=== PATIENT | male | born 1980 | race Caucasian/White ===

== ENCOUNTER 2017-07-11 20:48 | Observation (INO) ==
[2017-07-11] MEDS ORDERED: Ondansetron ODT 4 MG TAB.RAPDIS SL ONE (22:25)
--- NOTE | 2017-07-11 22:27 | Emergency Department Note ---
Disposition Clinical Impression: Abdominal pain Qualifiers: Abdominal location: left lower quadrant Qualified Code(s): R10.32 - Left lower quadrant pain Acute appendicitis Qualifiers: Acute appendicitis type: unspecified acute appendicitis type Qualified Code(s) : K35.80 - Unspecified acute appendicitis Disposition: Admitted As Inpatient Condition: Fair Instructions: Abdominal Pain (ED) Referrals: Riley Womack MD [Primary Care Provider] - Forms: ED Satisfaction Letter, Work/School Release Time of Disposition: 00:18 General Adult HPI - General Chief complaint: ED Abdominal Pain Stated complaint: abd pain Time Seen by Provider: 07/11/17 21:42 Source: patient Mode of arrival: ambulatory Limitations: no limitations Nursing Notes Reviewed: Yes Vital Signs Reviewed: Yes - History of Present Illness HPI Narrative: 37M evaluated yesterday in the ED for abdominal pain presenting less than 24 hours after discharge for same symptoms of nausea/vomitting, abodominal pain. CT yesterday was reviewed to be at the time non-surgical but prophylactic antibiotics were given in the setting of appendiceal dilatation with fecolith. Of note, he has been unable to keep fluids and prescribed meds down (was given Rx for antiemetics that he tried to take but was unsuccessful due to continued vomit). Pain Scale: 10 - Related Data Home Medications Medication Instructions Recorded Confirmed Budesonide/Formoterol 80/4.5 2 gm IH BIDR 08/31/16 08/31/16 [Symbicort 80/4.5] Escitalopram [Lexapro] 20 mg PO DAILY 08/31/16 03/08/17 Albuterol Sulfate [Ventolin Hfa] 18 gm IH Q4HR PRN 03/08/17 03/08/17 Aspirin 81 mg PO DAILY 03/08/17 03/08/17 Budesonide/Formoterol 80/4.5 2 puff IH BID 03/08/17 03/08/17 [Symbicort 80/4.5] Doxepin HCl 10 mg PO HS 03/08/17 03/08/17 Metoprolol [Lopressor] 25 mg PO BID 03/08/17 03/08/17 Previous Rx's Medication Instructions Recorded predniSONE [PredniSONE] 60 mg PO DAILY #15 tablet 03/24/17 Ciprofloxacin [Cipro] 500 mg PO BID #10 tablet 07/11/17 Ondansetron ODT [Zofran ODT] 4 mg SL Q6HR PRN #14 tab.rapdis 07/11/17 OxyCODONE/APAP 5/325 [Percocet 1 each PO Q6HR PRN 3 Days #10 07/11/17 5/325 MG] tablet metroNIDAZOLE [Flagyl] 500 mg PO BID #10 tablet 07/11/17 Allergies Allergy/AdvReac Type Severity Reaction Status Date / Time Amoxicillin Allergy Hives Verified 08/31/16 14:22 Penicillins Allergy Hives Verified 08/31/16 14:22 Constitutional: Denies: fever Cardiovascular: Denies: chest pain Respiratory: Denies: cough, dyspnea Gastrointestinal: Reports: abdominal pain, nausea, vomiting. Denies: diarrhea Genitourinary: Denies: dysuria Past Medical History - Past Medical History Medical history: Reports: asthma Surgical history: Reports: other Psychiatric history: Reports: anxiety, depression - Social History Smoking Status: Current every day smoker Smokeless Tobacco Status: No Alcohol use: Reports: none Drug use: Reports: none Physical Exam - General Limitations: no limitations General appearance: alert, in no apparent distress - Head Head exam: atraumatic, normocephalic - Eye Eye exam: Present: EOMI - Cardiovascular Cardiovascular exam: Present: regular rate, normal rhythm. Absent: systolic murmur, diastolic murmur, JVD - Abdominal Exam Abdominal exam: Present: soft, tenderness. Absent: guarding, rebound, rigidity , Lora's sign, Rovsing's sign - Neurological Exam Neurological exam: Present: alert, oriented X3 - Skin Skin exam: Present: warm. Absent: cyanosis, diaphoresis Course Course Narrative: On exam patient is tender at McBurney's point, no rebound, he has elevated an white count of 16k, afebrile. We are ordering a CT abd/pelvis with contrast along with basic labs. Past creatinine is WNL. CT was read as acute appendicitis, we are starting him on Levaquin/Flagyl, patient discussed with surgeon on-call who agrees to evaluate patient for surgery. He has no comorbidities or bleeding disorder. VSS stable 0017. Vital Signs Temperature 98.4 F 07/11/17 20:52 Pulse Rate 84 07/11/17 20:52 Respiratory Rate 16 07/11/17 20:52 Blood Pressure 142/76 07/11/17 20:52 O2 Sat by Pulse Oximetry 96 07/11/17 20:52 Temperature 98.4 F 07/11/17 20:52 Pulse Rate 84 07/11/17 20:52 Respiratory Rate 16 07/11/17 20:52 Blood Pressure 142/76 07/11/17 20:52 O2 Sat by Pulse Oximetry 96 07/11/17 20:52 Oxygen Delivery Oxygen Delivery Room Air Medical Decision Making - Medical Records Medical records reviewed: Yes I reviewed the patient's medical records. - Lab Data Lab results reviewed: Yes I reviewed the patient's lab results. Result diagrams: 07/11/17 23:00 07/11/17 23:00 Lab Results 07/11/17 07/11/17 07/11/17 Range/Units 22:58 23:00 23:00 WBC 16.1 H (4.3-11.1) K/mcL RBC 4.85 (4.19-5.50) M/mcL Hgb 15.4 D (12.9-16.9) g/dL Hct 43.8 (37.5-50.1) % MCV 90.3 (83.0-100.0) fL MCH 31.8 (28.0-33.3) pg MCHC 35.2 (31.6-35.5) g/dL RDW 13.2 (11.5-14.5) % Plt Count 317 (140-400) K/mcL MPV 8.7 L (9.4-12.4) fL Immature Gran % 0.4 (0-4) % Seg Neutrophils % 82.0 % Lymphocytes % 10.4 % Monocytes % 7.0 % Eosinophils % 0.1 % Basophils % 0.1 % Neutrophils # 13.2 H (1.6-8.9) K/mcL Lymphocytes # 1.7 (0.6-4.6) K/mcL Monocytes # 1.1 (0.0-1.3) K/mcL Eosinophils # 0.0 (0.0-0.6) K/mcL Basophils # 0.0 (0.0-0.2) K/mcL Sodium 139 (136-145) mEq/L Potassium 3.3 L (3.5-5.1) mEq/L Chloride 104 (98-107) mEq/L Carbon Dioxide 26 (23-29) mEq/L BUN 13 (6-20) mg/dL Creatinine 0.78 (0.70-1.30) mg/dL Est GFR ( Amer) > 60 (> 60) Est GFR (Non-Af Amer) > 60 (> 60) BUN/Creatinine Ratio 17 (6-26) Glucose 113 H (70-105) mg/dL Calculated Osmolality 289 (280-300) Calcium 9.9 (8.6-10.3) mg/dL Total Bilirubin 0.6 (0.3-1.0) mg/dL Direct Bilirubin 0.2 (0.0-0.2) mg/dL Indirect Bilirubin 0.4 (0.0-1.2) mg/dL AST 15 (13-39) Units/L ALT 27 (7-52) Units/L Alkaline Phosphatase 100 (34-104) Units/L Serum Total Protein 7.4 (6.4-8.9) g/dL Albumin 4.9 (3.5-5.7) g/dL Globulin 2.5 (2.4-3.5) g/dL Albumin/Globulin Ratio 2.0 (1.1-2.2) Lipase 31 (11-82) Units/L Urine Color Dark Yellow (Yellow) Urine Clarity Clear (Clear) Urine pH 7.5 (5.0-8.0) pH Units Ur Specific [place] > 1.030 H (1.010-1.025) Urine Protein 100 H (Neg-Trace) mg/dL Urine Glucose (UA) Normal (Normal) mg/dL Urine Ketones Trace H (Negative) mg/dL Urine Blood Negative (Negative) Urine Nitrite Negative (Negative) Urine Bilirubin Negative (Negative) Urine Urobilinogen Normal (Normal) mg/dL Ur Leukocyte Esterase Trace H (Negative) Urine Microscopic RBC 15-30 H (0-3) per hpf Urine Microscopic WBC 3-5 H (0-3) per hpf Ur Squamous Epith Cells Many H (None-Few) per lpf Urine Bacteria None Seen (None-Few) per hpf Hyaline Casts None Seen (None-Few) per lpf Ur Culture Indicated? NO. (NO) Attestation Statement - Attestation Attestation: I examined this patient and my medical decision-making was reviewed with the Resident Physician. I agree with the documented findings, disposition and treatment plan as described except to the extent set forth below. Findings consistent with acute appendicitis. Start Levaquin and Flagyl at surgical services request. Patient will be admitted for appendectomy.
[2017-07-11] MEDS ORDERED: *HR* HYDROcodone/Acet 5/325 mg TABLET PO ONE (22:29)
[2017-07-11 23:03] LABS: Bilirubin,Urine Negative (Negative); Blood,Urine Negative (Negative); Clarity,Urine Clear (Clear); Color,Urine Dark Yellow (Yellow); Glucose,Urine (UA) Normal (Normal); Ketones,Urine Trace mg/dL (Negative); Leukocyte Esterase,Urine Trace (Negative); Nitrite,Urine Negative (Negative); PH,Urine 7.5 pH Units (5.0-8.0); Protein,Urine 100 mg/dL (Neg-Trace); Specific Gravity,Urine > 1.030 (1.010-1.025); Urobilinogen,Urine Normal (Normal)
[2017-07-11 23:06] LABS: Bacteria,Urine None Seen per hpf (None-Few); Hyaline Casts,Urine None Seen per lpf (None-Few); RBC,Urine 15-30 per hpf (0-3); Squamous Epithelial Cell,Urine Many per lpf (None-Few)
[2017-07-11 23:17] LABS: Basophils % 0.1 %; Eosinophils % 0.1 %; Hematocrit 43.8 % (37.5-50.1); Immature Granulocytes % 0.4 % (0-4); Lymphocytes # 1.7 K/mcL (0.6-4.6); Lymphocytes % 10.4 %; Mean Corpuscular HGB Conc 35.2 g/dL (31.6-35.5); Mean Corpuscular Hemoglobin 31.8 pg (28.0-33.3); Mean Corpuscular Volume 90.3 fL (83.0-100.0); Mean Platelet Volume 8.7 fL (9.4-12.4); Monocytes # 1.1 K/mcL (0.0-1.3); Neutrophils # 13.2 K/mcL (1.6-8.9); Platelet Count 317 K/mcL (140-400); Red Blood Count 4.85 M/mcL (4.19-5.50); Red Cell Distribution Width 13.2 % (11.5-14.5)
[2017-07-11 23:18] LABS: Hemoglobin 15.4 g/dL (12.9-16.9)
[2017-07-11 23:37] LABS: Alanine Aminotransferase 27 Units/L (7-52); Albumin 4.9 g/dL (3.5-5.7); Alkaline Phosphatase 100 Units/L (34-104); Aspartate Amino Transferase 15 Units/L (13-39); BUN/Creatinine Ratio 17 (6-26); Bilirubin,Direct 0.2 mg/dL (0.0-0.2); Bilirubin,Indirect 0.4 mg/dL (0.0-1.2); Bilirubin,Total 0.6 mg/dL (0.3-1.0); Blood Urea Nitrogen 13 mg/dL (6-20); Calcium 9.9 mg/dL (8.6-10.3); Carbon Dioxide 26 mEq/L (23-29); Chloride 104 mEq/L (98-107); Globulin 2.5 g/dL (2.4-3.5); Glucose 113 mg/dL (70-105); Lipase 31 Units/L (11-82); Osmolality,Calculated 289 (280-300); Potassium 3.3 mEq/L (3.5-5.1); Sodium 139 mEq/L (136-145); Total Protein 7.4 g/dL (6.4-8.9); eGFR For African Americans > 60 (> 60); eGFR For Non-African Americans > 60 (> 60)
[2017-07-12] MEDS ORDERED: Levofloxacin 500 MG/100 ML 500 MG/100 ML BAG IVPB ONE (00:14)
[2017-07-12] MEDS ORDERED: MetroNIDAZOLE 500 MG/100 ML 500 MG/100 ML BAG IVPB ONE ×2 (00:14→01:15)
--- NOTE | 2017-07-12 00:41 | Anesthesia Evaluation PreOp ---
Date of Encounter: 07/12/17 Time of Encounter: 01:11 - Past History Planned Operation: Lap appendectomy Cardiac History: HTN Pulmonary History: Smoker ART LIBRARIAN History: Denies Any Significant HX Other Medical History: Denies Any Significant HX Anesthesia History: No Prior Anesthetic Complications, Past Anesthesia ( Tonsillectomy, excision right groin lymph node) Alcohol Use: none Drug use: none Medications and Allergies Budesonide/Formoterol 80/4.5 [Symbicort 80/4.5] 2 gm IH BIDR 08/31/16 [History] Escitalopram [Lexapro] 20 mg PO DAILY 08/31/16 [History] Albuterol Sulfate [Ventolin Hfa] 18 gm IH Q4HR PRN 03/08/17 [History] Aspirin 81 mg PO DAILY 03/08/17 [History] Budesonide/Formoterol 80/4.5 [Symbicort 80/4.5] 2 puff IH BID 03/08/17 [History ] Doxepin HCl 10 mg PO HS 03/08/17 [History] Metoprolol [Lopressor] 25 mg PO BID 03/08/17 [History] predniSONE [PredniSONE] 60 mg PO DAILY #15 tablet 03/24/17 [Rx] Ciprofloxacin [Cipro] 500 mg PO BID #10 tablet 07/11/17 [Rx] Ondansetron ODT [Zofran ODT] 4 mg SL Q6HR PRN #14 tab.rapdis 07/11/17 [Rx] OxyCODONE/APAP 5/325 [Percocet 5/325 MG] 1 each PO Q6HR PRN 3 Days #10 tablet [Rx] metroNIDAZOLE [Flagyl] 500 mg PO BID #10 tablet 07/11/17 [Rx] 3 Allergy/AdvReac Type Severity Reaction Status Date / Time Amoxicillin Allergy Hives Verified 08/31/16 14:22 Penicillins Allergy Hives Verified 08/31/16 14:22 - Meds/Allergy Pre-op Review Medications Reviewed: Yes Allergies Reviewed: Yes Beta Blockers on Current Med List: Yes (metoprolol) If Beta Blockers taken, Date/Time (Last Dose taken): hasn't taken this since Anesthesia Results - Labs 07/11/17 23:00 07/11/17 23:00 - Imaging EKG: report reviewed, image reviewed (SINUS RHYTHM WITH SINUS ARRHYTHMIA) Additional studies: Cardiac Cath: Impressions: Mild atherosclerotic coronary artery disease. The left ventricle is normal and has normal contractility EF 65% Anesthesia Exam Last Vital Signs Temp 98.4 F 07/11/17 20:52 Pulse 84 07/11/17 20:52 Resp 16 07/11/17 20:52 BP 142/76 07/11/17 20:52 Pulse Ox 96 07/11/17 20:52 Weight: 77 kg NPO (# of Hours): > 8 hrs - HEENT Pupil (Motor): Pupils equal, EOMI Mallampati: II Teeth: Missing, Poor dentition Oral Opening: Greater than 3 - ART LIBRARIAN LOC: Oriented - Cardiac Rhythm: Regular Murmur: None - Pulmonary Breath Sounds: bilateral Clear Respiratory Effort: Symmetrical Anesthesia Assess/Plan ASA Score: 2 Modified Noel Scale for Level of Consciousness: Cooperative, oriented, and tranquil Anesthetic Plan: General Monitoring Plan: Standard Monitors Recovery Plan: PACU
--- NOTE | 2017-07-12 00:42 | General Surg History&Physical ---
Date of Encounter: 07/12/17 Time of Encounter: 00:39 Assessment and Plan (1) Acute appendicitis Current Visit: Yes Status: Acute The assessment and plan as outlined above was discussed with the patient and/or family members who expressed understanding and agreement. All questions were answered. I explained to the patient that he does have evidence of acute appendicitis and I think it would be appropriate to proceed with a laparoscopic appendectomy. Risks and benefits have been discussed with the patient he agrees to the above plan. Qualifiers: Acute appendicitis type: with localized peritonitis Qualified Code(s): K35.3 - Acute appendicitis with localized peritonitis History of Present Illness Chief complaint: Periumbilical pain HPI: Mr. Orlando is a 37 year old male with a past medical history significant for HTN states he has had a 2 day history of periumbilical pain radiating to the back. Denies any nausea or vomiting and denies any diarrhea or constipation. He does have decreased appetite. He presented to the emergency room early Wednesday morning with similar symptoms and a CAT scan was performed which showed a dilated appendix with no signs of inflammation. He had a mildly elevated white count was discharged home with oral antibiotics however approximately 12 hours later he represented to the hospital with worsening symptoms. Repeat CAT scan showed evidence of appendicitis. Past Med Surg Social Fam HX - Past Medical History Medical history: asthma, hypertension Psychiatric history: anxiety, depression - Past Surgical History Surgical History: other (T&A) - Social History Smoking Status: Current every day smoker Smokeless Tobacco Status: No Alcohol use: none Drug use: none Medications and Allergies Budesonide/Formoterol 80/4.5 [Symbicort 80/4.5] 2 gm IH BIDR 08/31/16 [History] Escitalopram [Lexapro] 20 mg PO DAILY 08/31/16 [History] Albuterol Sulfate [Ventolin Hfa] 18 gm IH Q4HR PRN 03/08/17 [History] Aspirin 81 mg PO DAILY 03/08/17 [History] Budesonide/Formoterol 80/4.5 [Symbicort 80/4.5] 2 puff IH BID 03/08/17 [History ] Doxepin HCl 10 mg PO HS 03/08/17 [History] Metoprolol [Lopressor] 25 mg PO BID 03/08/17 [History] predniSONE [PredniSONE] 60 mg PO DAILY #15 tablet 03/24/17 [Rx] Ciprofloxacin [Cipro] 500 mg PO BID #10 tablet 07/11/17 [Rx] Ondansetron ODT [Zofran ODT] 4 mg SL Q6HR PRN #14 tab.rapdis 07/11/17 [Rx] OxyCODONE/APAP 5/325 [Percocet 5/325 MG] 1 each PO Q6HR PRN 3 Days #10 tablet [Rx] metroNIDAZOLE [Flagyl] 500 mg PO BID #10 tablet 07/11/17 [Rx] 3 Allergy/AdvReac Type Severity Reaction Status Date / Time Amoxicillin Allergy Hives Verified 08/31/16 14:22 Penicillins Allergy Hives Verified 08/31/16 14:22 Review of Systems All systems PM: reviewed and no additional remarkable complaints except as stated All systems PM: The remainder of the systems were reviewed and are negative General Surgery Exam Initial Vital Signs Temp Pulse Resp BP Pulse Ox 98.4 F 84 16 142/76 96 07/11/17 20:52 07/11/17 20:52 07/11/17 20:52 07/11/17 20:52 07/11/17 20:52 - General physical appearance well developed, no distress - Respiratory normal expansion, normal respiratory effort, clear to auscultation - Cardiovascular Cardiovascular exam: Present: RRR, no murmurs/rubs/gallops - Abdomen Abdomen general surgery: Present: bowel sounds present, soft, tender ( periumbilical pain with pain in the RLQ>LLQ) - Neurologic Present: CN 2-12 grossly intact - Musculoskeletal Present: other (no clubbing cyanosis or edema) - Psychiatric Psychiatric general surgery: Present: A&Ox3, oriented to person, oriented to place, oriented to time Results - Labs 07/11/17 23:00 07/11/17 23:00 Abnormal lab results WBC 16.1 K/mcL (4.3-11.1) H 07/11/17 23:00 MPV 8.7 fL (9.4-12.4) L 07/11/17 23:00 Neutrophils # 13.2 K/mcL (1.6-8.9) H 07/11/17 23:00 Potassium 3.3 mEq/L (3.5-5.1) L 07/11/17 23:00 Glucose 113 mg/dL (70-105) H 07/11/17 23:00 Ur Specific [place] > 1.030 (1.010-1.025) H 07/11/17 22:58 Urine Protein 100 mg/dL (Neg-Trace) H 07/11/17 22:58 Urine Ketones Trace mg/dL (Negative) H 07/11/17 22:58 Ur Leukocyte Esterase Trace (Negative) H 07/11/17 22:58 Urine Microscopic RBC 15-30 per hpf (0-3) H 07/11/17 22:58 Urine Microscopic WBC 3-5 per hpf (0-3) H 07/11/17 22:58 Ur Squamous Epith Cells Many per lpf (None-Few) H 07/11/17 22:58 Diabetes panel 07/11/17 Range/Units 23:00 Sodium 139 (136-145) mEq/L Potassium 3.3 L (3.5-5.1) mEq/L Chloride 104 (98-107) mEq/L Carbon Dioxide 26 (23-29) mEq/L BUN 13 (6-20) mg/dL Creatinine 0.78 (0.70-1.30) mg/dL Glucose 113 H (70-105) mg/dL Calcium 9.9 (8.6-10.3) mg/dL AST 15 (13-39) Units/L ALT 27 (7-52) Units/L Alkaline Phosphatase 100 (34-104) Units/L Albumin 4.9 (3.5-5.7) g/dL Calcium panel 07/11/17 Range/Units 23:00 Calcium 9.9 (8.6-10.3) mg/dL Albumin 4.9 (3.5-5.7) g/dL Pituitary panel 07/11/17 Range/Units 23:00 Sodium 139 (136-145) mEq/L Potassium 3.3 L (3.5-5.1) mEq/L Chloride 104 (98-107) mEq/L Carbon Dioxide 26 (23-29) mEq/L BUN 13 (6-20) mg/dL Creatinine 0.78 (0.70-1.30) mg/dL Glucose 113 H (70-105) mg/dL Calcium 9.9 (8.6-10.3) mg/dL Adrenal panel 07/11/17 Range/Units 23:00 Sodium 139 (136-145) mEq/L Potassium 3.3 L (3.5-5.1) mEq/L Chloride 104 (98-107) mEq/L Carbon Dioxide 26 (23-29) mEq/L BUN 13 (6-20) mg/dL Creatinine 0.78 (0.70-1.30) mg/dL Glucose 113 H (70-105) mg/dL Calcium 9.9 (8.6-10.3) mg/dL Total Bilirubin 0.6 (0.3-1.0) mg/dL AST 15 (13-39) Units/L ALT 27 (7-52) Units/L Alkaline Phosphatase 100 (34-104) Units/L Albumin 4.9 (3.5-5.7) g/dL All other labs normal. - Imaging CT scan - abdomen: report reviewed, image reviewed (CT scan shows evidence of appendiceal inflammation consistent with acute appendicitis)
[2017-07-12] MEDS ORDERED: *HR* FentaNYL (PF) 100 MCG/2 ML VIAL ONE ×2 (00:46→02:08)
[2017-07-12] MEDS ORDERED: *HR* Succinylcholine 200 MG/10 ML VIAL IVP ONE (00:46)
[2017-07-12] MEDS ORDERED: Lidocaine -MPF 2% 2 ML VIAL ONE (00:46)
[2017-07-12] MEDS ORDERED: *HR* Propofol 200 MG/20 ML VIAL IVP ONE ×2 (00:46→02:20)
[2017-07-12] MEDS ORDERED: *HR* Midazolam HCl 2 MG/2 ML VIAL ONE (00:46)
[2017-07-12] MEDS ORDERED: Albuterol 2.5 MG/3 ML NEBULIZER IH ONE (01:13)
[2017-07-12] MEDS ORDERED: *HR* Promethazine 25 MG/ML VIAL IVP PRN (01:13)
[2017-07-12] MEDS ORDERED: *HR* OxyCODONE Immed Rel 5 MG TABLET PO PRN (01:13)
[2017-07-12] MEDS ORDERED: Neostigmine Methylsulfate 3 MG/3 ML SYRINGE ONE (02:01)
[2017-07-12] MEDS ORDERED: Ketorolac 30 MG/ML VIAL ONE (02:01)
[2017-07-12] MEDS ORDERED: Ondansetron 4 MG/2 ML VIAL ONE (02:01)
[2017-07-12] MEDS ORDERED: Dexamethasone 4 MG/ML VIAL ONE (02:01)
[2017-07-12] MEDS ORDERED: *HR* Rocuronium Bromide 50 MG/5 ML VIAL ONE (02:01)
--- NOTE | 2017-07-12 02:34 | Operative Note ---
Date of procedure: 07/12/17 Pre-op diagnosis: Acute appendicitis Post-op diagnosis: same Procedure: Laparoscopic appendectomy Anesthesia: GETA Surgeon: Donny Nathan Was there an veterinary technician assistant present: No Valet Runner Other: DORIS Desir Estimated blood loss (cc): 6 Specimen: appendix Condition: stable Disposition: PACU Procedure in Detail: Date of surgery: 07/12/17 After properly identifying the patient, the patient was brought to the operating room placed in supine position. After proper IV sedation was achieved followed by general endotracheal intubation, the patient's abdomen was prepped and draped in a normal sterile fashion. A timeout was performed noting the patient's name and type of procedure to be performed. An 11 blade scalpel was used to make an infraumbilical incision down to the level of the rectus fascia. Once the rectus fascia was incised the abdomen was entered and a 12 mm port was placed through the incision and the abdomen was insufflated with carbon dioxide. A laparoscopic camera was placed through the port which showed no injury to the intra-abdominal organs upon entry. A suprapubic 5 mm port in the left lower quadrant 5 mm port were then placed under direct camera visualization. The patient was placed in a Trendelenburg position with left side down the right lower quadrant was examined. There was an inflamed enlarged appendix consistent with acute appendicitis. This was carefully dissected away from its lateral attachments with blunt dissection and Bovie cauterization. Once the appendix was dissected free the base of the appendix was dissected away from the mesentery with the [place] dissector. The base of the appendix and the mesentery connected to the appendix were transected with a laparoscopic JERI stapler. The appendix was then removed from the abdomen via an Endobag and reinspection of the staple line demonstrated no evidence of bleeding. The right lower quadrant and pelvis were irrigated with normal saline solution. Reinspection of the right lower quadrant demonstrated maintenance of hemostasis and all ports are then removed from the abdomen after the abdomen was desufflated. The rectus fascia for the subumbilical incision was reapproximated with a figure -of-eight 0 Vicryl suture. The subcutaneous tissue was reapproximated with interrupted 3-0 Vicryl sutures and the epidermal and dermal layers for the remaining incisions were closed with 4-0 Monocryl sutures. Needle, sponge, and instrument counts were correct 2 and the incisions were covered with Dermabond. The patient was aroused from IV sedation, extubated in the operating room without complication, and transported to the recovery room in stable condition.
--- NOTE | 2017-07-12 03:23 | Anesthesia Evaluation Post Op ---
Date of Encounter: 07/12/17 Time of Encounter: 03:22 - Vital Signs Vital Signs: Last Vital Signs Temp 98.3 F 07/12/17 03:17 Pulse 80 07/12/17 03:17 Resp 16 07/12/17 03:17 BP 143/94 07/12/17 03:17 Pulse Ox 97 07/12/17 03:17 - Lungs Lungs: Clear Ascult./Percussion - Airway Airway: Non-obstructed - Cardiovascular Regular Rate - Mental Status Mental Status: Alert & Oriented, Answers Appropriately - Pain Pain Scale: 3 - Nausea Vomiting Nausea Vomiting: Not Present - Hydration Hydration: Ice chips - Discharge PostOp Status: Transfer Patient to floor
[2017-07-12] MEDS ORDERED: Ondansetron 4 MG/2 ML VIAL IVP PRN (03:35)
[2017-07-12] MEDS ORDERED: MORPHINE SUL Oral CONC 10 MG/0.5 ML ORAL.SYG SL PRN (03:35)
[2017-07-12] MEDS ORDERED: 0.9 % Sodium Chloride 1,000 ML IVC SCH (03:35)
[2017-07-12] MEDS ORDERED: 0.9 % Sodium Chloride 1,000 ML ONE (03:41)
[2017-07-12 04:44] LABS: Basophils % 0.2 %; Hematocrit 38.1 % (37.5-50.1); Immature Granulocytes % 0.8 % (0-4); Lymphocytes # 1.1 K/mcL (0.6-4.6); Lymphocytes % 7.5 %; Mean Corpuscular HGB Conc 35.2 g/dL (31.6-35.5); Mean Corpuscular Hemoglobin 31.7 pg (28.0-33.3); Mean Corpuscular Volume 90.1 fL (83.0-100.0); Mean Platelet Volume 8.8 fL (9.4-12.4); Monocytes # 0.9 K/mcL (0.0-1.3); Monocytes % 6.2 %; Neutrophils # 12.8 K/mcL (1.6-8.9); Platelet Count 264 K/mcL (140-400); Red Blood Count 4.23 M/mcL (4.19-5.50); Red Cell Distribution Width 13.2 % (11.5-14.5); Segmented Neutrophils % 85.3 %
[2017-07-12 04:45] LABS: Hemoglobin 13.4 g/dL (12.9-16.9)
[2017-07-12 05:04] LABS: BUN/Creatinine Ratio 17 (6-26); Blood Urea Nitrogen 14 mg/dL (6-20); Carbon Dioxide 24 mEq/L (23-29); Chloride 107 mEq/L (98-107); Glucose 114 mg/dL (70-105); Osmolality,Calculated 287 (280-300); Potassium 3.6 mEq/L (3.5-5.1); Sodium 138 mEq/L (136-145); eGFR For African Americans > 60 (> 60); eGFR For Non-African Americans > 60 (> 60)
[2017-07-12] MEDS ORDERED: *HR* Heparin 5,000 UNIT/ML VIAL SQ SCH (06:00)
[2017-07-12] MEDS: *HR* OxyCODONE/APAP 7.5/325 TABLET PO PRN ×2 (06:39→14:01)
[2017-07-12] MEDS ORDERED: MetroNIDAZOLE 500 MG/100 ML 500 MG/100 ML BAG IVPB SCH (08:00)
[2017-07-12] MEDS ORDERED: Pantoprazole 40 MG VIAL IVP SCH (09:00)
[2017-07-12] MEDS ORDERED: Levofloxacin 500 MG/100 ML 500 MG/100 ML BAG IVPB SCH (09:00)
--- NOTE | 2017-07-12 09:01 | Discharge Summary ---
Orders not resulted at time of discharge: Pending orders 07/12/17 02:34 Surgical Pathology [PTH] Routine Date of Encounter: 07/12/17 Time of Encounter: 09:00 - Discharge Diagnosis (1) Acute appendicitis Priority: Primary Status: Resolved Qualifiers: Acute appendicitis type: with localized peritonitis Qualified Code(s): K35.3 - Acute appendicitis with localized peritonitis General Surgery Exam Initial Vital Signs Temp Pulse Resp BP Pulse Ox 98.4 F 84 16 142/76 96 07/11/17 20:52 07/11/17 20:52 07/11/17 20:52 07/11/17 20:52 07/11/17 20:52 VITAL SIGNS: Reviewed. See [facility] GENERAL: In no apparent distress. HEENT: Normocephalic, atraumatic, pupils are equal and reactive, extraocular motions intact, oropharynx is pink and moist, poor dentition, there is no neck adenopathy or JVD noted. CHEST/RESPIRATORY: The thorax is free from signs of trauma. Lung sounds: clear to auscultation, normal respiratory effort CARDIAC: Regular rate and rhythm. Normal S1 and S2, without murmurs, gallops, or rubs. VASCULAR: No Edema. 2+ peripheral pulses. ABDOMEN: soft, expected postoperative tenderness, hypoactive bowel sounds, mildly distended INCISION: Surgical incision is clean, dry, and intact. There are no signs of cellulitis or infection noted. MUSCULOSKELETAL: Good range of motion of all major joints. Extremities without clubbing, cyanosis or edema. NEUROLOGIC EXAM: Alert and oriented x 3. Speech normal. Follows commands. PSYCHIATRIC: Mood normal. SKIN: No rash noted. There is a rash on the bilateral upper and lower extremities consistent with bug bites. - Hospital Course Hospital course: Mr. Orlando is a 37 year old male who presented on 07/12/2107 for complaints of a 2 days history of periumbilical pain radiating to the back. The CT was performed which showed a dilated appendix with no signs of inflammation. He had a mildly elevated white blood cell count despite being on oral antibiotics at home. He was taken to the operating room where he underwent an uncomplicated laparoscopic appendectomy under general anesthesia by Dr. Nathan. He is ambulating and voiding without difficulty, tolerating a regular diet without nausea or vomiting, vital signs are stable, afebrile, and his abdominal discomfort is well-controlled. We will begin discharge planning to home with a follow-up in the office in approximately 2 weeks. - Time Spent with Patient Total time spent providing and/or coordinating discharge services: - Discharge Medications Prescriptions: OxyCODONE/APAP 5/325 [Percocet 5/325 MG] 1 each PO Q6HR PRN 5 Days #15 tablet PRN Reason: Pain Ciprofloxacin [Cipro] 500 mg PO BID 5 Days #10 tablet Ibuprofen 800 mg PO Q8H #30 tablet metroNIDAZOLE [Flagyl] 500 mg PO TID 5 Days #15 tablet Polyethylene Glycol 3350 [MiraLAX Powder Bulk 17.9 Oz] 1 scoop PO DAILY #510 gm Home Medications: Budesonide/Formoterol 80/4.5 [Symbicort 80/4.5] 2 gm IH BIDR 08/31/16 [History] Escitalopram [Lexapro] 20 mg PO DAILY 08/31/16 [History] Albuterol Sulfate [Ventolin Hfa] 18 gm IH Q4HR PRN 03/08/17 [History] Aspirin 81 mg PO DAILY 03/08/17 [History] Budesonide/Formoterol 80/4.5 [Symbicort 80/4.5] 2 puff IH BID 03/08/17 [History ] Doxepin HCl 10 mg PO HS 03/08/17 [History] Metoprolol [Lopressor] 25 mg PO BID 03/08/17 [History] predniSONE [PredniSONE] 60 mg PO DAILY #15 tablet 03/24/17 [Rx] Ondansetron ODT [Zofran ODT] 4 mg SL Q6HR PRN #14 tab.rapdis 07/11/17 [Rx] Ciprofloxacin [Cipro] 500 mg PO BID 5 Days #10 tablet 07/12/17 [Rx] Ibuprofen 800 mg PO Q8H #30 tablet 07/12/17 [Rx] OxyCODONE/APAP 5/325 [Percocet 5/325 MG] 1 each PO Q6HR PRN 5 Days #15 tablet [Rx] Polyethylene Glycol 3350 [MiraLAX Powder Bulk 17.9 Oz] 1 scoop PO DAILY #510 gm 07/12/17 [Rx] metroNIDAZOLE [Flagyl] 500 mg PO TID 5 Days #15 tablet 07/12/17 [Rx] Allergies/Adverse Reactions: 3 Allergy/AdvReac Type Severity Reaction Status Date / Time Amoxicillin Allergy Hives Verified 08/31/16 14:22 Penicillins Allergy Hives Verified 08/31/16 14:22 Date of admission: 07/12/17 00:56 Primary care physician: Riley Womack MD Discharging clinician: Donny Chandra) Anticipated date of discharge: 07/12/17 Labs on day of discharge: Labs from last 24 hours 07/12/17 07/12/17 04:05 04:05 WBC 14.9 H RBC 4.23 Hgb 13.4 D Hct 38.1 MCV 90.1 MCH 31.7 MCHC 35.2 RDW 13.2 Plt Count 264 MPV 8.8 L Immature Gran % 0.8 Seg Neutrophils % 85.3 Lymphocytes % 7.5 Monocytes % 6.2 Eosinophils % 0.0 Basophils % 0.2 Neutrophils # 12.8 H Lymphocytes # 1.1 Monocytes # 0.9 Eosinophils # 0.0 Basophils # 0.0 Sodium 138 Potassium 3.6 Chloride 107 Carbon Dioxide 24 BUN 14 Creatinine 0.82 Est GFR ( Amer) > 60 Est GFR (Non-Af Amer) > 60 BUN/Creatinine Ratio 17 Glucose 114 H Calculated Osmolality 287 Calcium 9.0 - Patient Status Disposition: Home, Self-Care Condition: Fair Functional capacity at discharge: independent ambulation Overall status at discharge: patient is progressing back to baseline - Discharge Instructions Instructions: Laparoscopic Appendectomy (DC) Follow Up With: Riley Womack MD [Primary Care Provider] - Lexus Leonard CNP [Advanced Practice Nurse] - 07/26/17 2:00 pm Forms: Inpatient Work/School Release Additional Instructions: General Surgical Discharge Instructions 1. No pushing, pulling, or lifting greater than 15 lbs for 2-4 weeks (depending upon procedure). 2. You may shower beginning today, but no tub baths, soaking, or swimming for 2 weeks. 3. You may resume driving when you are off narcotics and are safe to react in a car. 4. Take ibuprofen every 8 hours for discomfort. If this does not relieve discomfort, you may take the as needed Percocet. Take narcotics as directed. Do not take more narcotics then directed and do not share your narcotics with any other person. Do not drink alcohol while on narcotics. 5. Take stool softeners (Colace) or a water based laxative (Miralax) while taking narcotics. You may hold for loose stools. 6. Report any fevers greater than 100.5F, increase abdominal discomfort, drainage that looks like pus, increased redness or pain at the surgical site, or any vomiting. 7. Report any pain in the calves, shortness of breath, or rapid heartbeat. 8. Follow-up in the office as directed. 9. If you were prescribed antibiotics, do not stop them without talking to your provider. 10. Take antibiotics only as directed. Do not stop antibiotics without talking to your provider. Do not drink alcohol while taking metronidazole and refrain from drinking alcohol for at least 48 hours after completing metronidazole. - Diet and Activity Activity: increase activity as tolerated Diet: advance to your usual diet
[2017-07-12 11:20] VITALS: BP 129/79
== END 2017-07-12 14:39 | disposition home or self-care (01) ==
LOC: 3BNU 20:48 → EMEROO 20:48 → 3BNU 07-12 01:13
PROVIDERS: ADMIT Surgery; ATTEND Surgery